=== PATIENT | female | born 1945 | race Caucasian/White ===

== ENCOUNTER 2018-09-05 13:17 | Emergency (ER) | payer MEDICARE, MEDICAID ==
--- NOTE | 2018-09-05 15:33 | ULT ---
VENOUS DOPPLER ULTRASOUND OF THE LEFT LOWER EXTREMITY: Date: 09/05/18 HISTORY: 73-year-old female with right lower extremity pain and edema. TECHNIQUE: Otero scale ultrasound with color flow and spectral Doppler imaging of the deep venous systems of the left lower extremity performed. FINDINGS: There is good flow, compression, and augmentation noted in the left common femoral, femoral, deep fem oral, popliteal, posterior tibial, and greater saphenous veins. IMPRESSION: No evidence of deep venous thrombosis in the left lower extremity. POS: C
--- NOTE | 2018-09-05 16:04 | ULT ---
VENOUS DOPPLER ULTRASOUND OF RIGHT LOWER EXTREMITY: Date; 09/05/18 HISTORY: Right lower extremity edema. TECHNIQUE: Otero scale ultrasound with color flow and spectral Doppler imaging of the deep venous system of the r ight lower extremity was performed. FINDINGS: There is good flow, compression, and augmentation noted in the right common femoral, femoral, deep fe moral, popliteal, posterior tibial, and greater saphenous veins. IMPRESSION: No evidence of deep venous thrombosis in the right lower extremity. POS: C
== END 2018-09-05 17:12 | disposition home or self-care (01) ==
LOC: ERS 13:17
DX: R60.0 Localized edema (principal); E03.9 Hypothyroidism, unspecified; J45.909 Unspecified asthma, uncomplicated; E78.5 Hyperlipidemia, unspecified; F41.9 Anxiety disorder, unspecified; F32.9 Major depressive disorder, single episode, unspecified

== ENCOUNTER 2021-12-29 17:07 | Inpatient (IN) | payer MEDICARE, MEDICAID ==
[2021-12-29 17:49] LABS: #Basophils 0.1 thou/uL (0.0-0.2); #Monocytes 0.7 thou/uL (0.11-0.59); #Neutrophils 6.2 thou/uL (1.40-6.50); %Eosinophils 0.2 % (0.0-10.0); %Monocytes 8.6 % (0.0-10.0); %Neutrophils 77.3 % (42.0-75.0); Hemoglobin 11.1 g/dL (12.0-16.0); Mean Corpuscular HGB CONC 31.3 g/dL (32.0-36.0); Mean Corpuscular Hemoglobin 32.1 pg (27.0-31.0); Mean Platelet Volume 8.3 fL (7.4-10.4); Platelet Count 184 thou/uL (130-400); RBC Distribution Width 12.5 % (11.5-14.5); Red Blood Cell (RBC) Count 3.46 mill/uL (4.20-5.40)
[2021-12-29 18:00] LABS: INR-International Normal Ratio 0.9; Prothrombin Time 12.4 sec (12.0-14.7)
[2021-12-29 18:01] LABS: PTT 30.7 sec (22.9-36.1)
[2021-12-29 18:07] LABS: ALT (SGPT) 17 U/L (8-55); AST (SGOT) 37 U/L (5-34); Albumin 4.1 g/dL (3.4-4.8); Alkaline Phosphatase 89 U/L (40-110); Anion Gap 16 mmol/L (10-20); BUN (Urea Nitrogen) 25 mg/dL (9.8-20.1); Bilirubin, Total 0.7 mg/dL (0.2-1.2); CK (CPK) 294 U/L (29-168); Calc. Creatinine Clearance 0 mL/min (70-130); Calcium 9.7 mg/dL (7.8-10.44); Carbon Dioxide 26 mmol/L (23-31); Chloride 105 mmol/L (98-107); Estimated GFR 57; Globulin 3.2 g/dL (2.4-3.5); Glucose 119 mg/dL (83-110); Lipase 22 U/L (8-78); Potassium 3.6 mmol/L (3.5-5.1); Protein, Total 7.3 g/dL (5.8-8.1); Sodium 143 mmol/L (136-145)
[2021-12-29] MEDS ORDERED: niCARdipine 25 MG in Sodium Chloride 0.9% 250 ML 250 ML IVPB SCH ×2 (18:30→20:18)
[2021-12-29 18:34] LABS: Bilirubin Negative (Negative); Blood, Urine Negative (Negative); Clarity Clear (Clear); Glucose, Urine (Dipstick) Normal (Negative); Ketone, Urine Negative (Negative); Leukocyte 500 Leu/uL (Negative); Nitrite 1+ (Negative); Protein, Urine (Dipstick) 10 mg/dL (Neg-Trace); Urobilinogen Normal mg/dL (Less than 2)
[2021-12-29 18:37] LABS: Bacteria/HPF 3+ HPF (None Seen); Squamous Epithelial 0-3 HPF (0-3)
[2021-12-29] MEDS ORDERED: Ondansetron PF 4 MG/2 ML Vial ONE (18:41)
[2021-12-29] MEDS ORDERED: niCARdipine 25 MG/10 ML VIAL ONE (18:41)
[2021-12-29] MEDS ORDERED: cefTRIAXone\\ROCEPHIN 1 GM VIAL ONE (19:06)
[2021-12-29] MEDS ORDERED: Ondansetron PF 4 MG/2 ML Vial IVP PRN (20:10)
[2021-12-29] MEDS ORDERED: Insulin Regular 300 UNITS/3 ML VIAL SC PRN (20:10)
[2021-12-29] MEDS ORDERED: Mannitol 12.5 GM/50 ML IV PRN ×2 (20:10→20:32)
[2021-12-29] MEDS ORDERED: Dextrose 5% in Water 1,000 ML IV PRN (20:10)
[2021-12-29] MEDS ORDERED: Dextrose 50% Abboject 50 ML SYRINGE SLOW IVP PRN (20:10)
[2021-12-29] MEDS ORDERED: DOPamine 400 MG/D5W 250 ML 250 ML IVPB PRN (20:10)
[2021-12-29] MEDS ORDERED: Morphine 2 MG/ML VIAL SLOW IVP PRN (20:17)
[2021-12-29 21:30] LABS: Anion Gap 14 mmol/L (10-20); BUN (Urea Nitrogen) 23 mg/dL (9.8-20.1); Calc. Creatinine Clearance 0 mL/min (70-130); Calcium 8.7 mg/dL (7.8-10.44); Carbon Dioxide 24 mmol/L (23-31); Chloride 107 mmol/L (98-107); Estimated GFR 63; Glucose 106 mg/dL (83-110); Potassium 3.3 mmol/L (3.5-5.1); Sodium 142 mmol/L (136-145)
[2021-12-29] MEDS: Dextrose 5 % And 0.9 % NaCl 1,000 ML IV SCH (21:52)
[2021-12-29] MEDS: Famotidine/PF 20 mg/2ml Vial SLOW IVP SCH (22:09)
[2021-12-29 22:36] VITALS: BMI 24.8
[2021-12-30 00:19] LABS: SARS-CoV-2 NAA Rapid Test Not Detected (NotDetected)
[2021-12-30] MEDS ORDERED: Potassium Chloride 20 MEQ in Premix Bag 1 BAG IVPB SCH (00:45)
[2021-12-30 04:22] LABS: #Basophils 0.1 thou/uL (0.0-0.2); #Eosinphils 0.1 thou/uL (0.0-0.7); #Lymphocytes 1.3 thou/uL (1.20-3.40); #Monocytes 0.8 thou/uL (0.11-0.59); #Neutrophils 4.6 thou/uL (1.40-6.50); %Basophils 1.1 % (0.0-1.0); %Eosinophils 1.3 % (0.0-10.0); %Lymphocytes 19.3 % (21.0-51.0); %Monocytes 11.1 % (0.0-10.0); %Neutrophils 67.2 % (42.0-75.0); Hemoglobin 11.5 g/dL (12.0-16.0); Mean Corpuscular HGB CONC 31.3 g/dL (32.0-36.0); Mean Corpuscular Hemoglobin 32.7 pg (27.0-31.0); Mean Platelet Volume 8.4 fL (7.4-10.4); Platelet Count 169 thou/uL (130-400); RBC Distribution Width 12.5 % (11.5-14.5); White Blood Cell (WBC) Count 6.9 thou/uL (4.8-10.8)
[2021-12-30 04:33] LABS: Anion Gap 16 mmol/L (10-20); BUN (Urea Nitrogen) 19 mg/dL (9.8-20.1); Calc. Creatinine Clearance 46 mL/min (70-130); Calcium 9.3 mg/dL (7.8-10.44); Carbon Dioxide 25 mmol/L (23-31); Cardiac Risk 3.2 (Less than 4.5); Chloride 106 mmol/L (98-107); Cholesterol 197 mg/dl (< 200 Desired); Estimated GFR 68; Glucose 94 mg/dL (83-110); HDL Cholesterol 62 mg/dL (>60 Neg Risk); LDL Cholesterol, Calculated 119 mg/dL; Potassium 3.6 mmol/L (3.5-5.1); Sodium 143 mmol/L (136-145); Triglycerides 78 mg/dL (Less than 150)
[2021-12-30] MEDS: cefTRIAXone\\ROCEPHIN 1 GM in Sodium Chloride 0.9% 100 ML IVPB SCH (08:21)
[2021-12-30] MEDS: Famotidine/PF 20 mg/2ml Vial SLOW IVP SCH (08:21)
[2021-12-30] MEDS ORDERED: Sodium Chloride 0.9% (PF) 10 ML VIAL FS PRN (13:00)
[2021-12-30] MEDS: Labetalol HCl 100 MG/20 ML VIAL SLOW IVP PRN (14:32)
[2021-12-30] MEDS ORDERED: Amlodipine 10 MG TAB PO SCH (14:45)
[2021-12-30] MEDS ORDERED: Artificial Tear Sol 15 ML BOT EA EYE PRN (15:10)
[2021-12-30] MEDS ORDERED: Melatonin 3 MG TAB PO PRN (15:13)
[2021-12-30] MEDS ORDERED: Teriflunomide [Aubagio] 14 MG Tablet PO SCH (15:30)
[2021-12-30] MEDS: Dextrose 5 % And 0.9 % NaCl 1,000 ML IV SCH ×2 (15:35→20:13)
[2021-12-30] MEDS: Mometasone 100 MCG/PUFF (1 INHALER) INH SCH (18:54)
[2021-12-30] MEDS: Ketotifen Fumarate 0.025% Ophth Soln 5 ml Bottle EA EYE SCH (20:52)
[2021-12-30] MEDS: Montelukast Sodium 10 mg Tablet PO SCH (20:53)
[2021-12-31] MEDS: Levothyroxine Sodium 50 MCG TAB PO SCH (06:02)
[2021-12-31] MEDS ORDERED: Pantoprazole 40 MG VIAL IVP SCH (09:00)
[2021-12-31] MEDS: Amlodipine 5 MG TAB PO SCH (10:10)
[2021-12-31] MEDS: Ezetimibe 10 MG TAB PO SCH (10:11)
[2021-12-31] MEDS: Escitalopram Oxalate 20 mg Tablet PO SCH (10:11)
[2021-12-31] MEDS: cefTRIAXone\\ROCEPHIN 1 GM in Sodium Chloride 0.9% 100 ML IVPB SCH (10:11)
[2021-12-31] MEDS: Ketotifen Fumarate 0.025% Ophth Soln 5 ml Bottle EA EYE SCH ×2 (10:12→21:10)
[2021-12-31] MEDS: Teriflunomide [Aubagio] 14 MG Tablet PO SCH (10:12)
[2021-12-31] MEDS: Loratadine 10 MG TAB PO SCH (10:12)
[2021-12-31] MEDS: Mometasone 100 MCG/PUFF (1 INHALER) INH SCH ×3 (10:20→18:43)
[2021-12-31] MEDS ORDERED: Polyethylene Glycol 3350 17 GM Packet PO SCH (11:00)
[2021-12-31] MEDS: Labetalol HCl 100 MG/20 ML VIAL SLOW IVP PRN (11:24)
[2021-12-31] MEDS: Dextrose 5 % And 0.9 % NaCl 1,000 ML IV SCH (17:30)
[2021-12-31] MEDS: Montelukast Sodium 10 mg Tablet PO SCH (21:10)
[2022-01-01 04:44] LABS: #Basophils 0.1 thou/uL (0.0-0.2); #Eosinphils 0.2 thou/uL (0.0-0.7); #Lymphocytes 1.4 thou/uL (1.20-3.40); #Monocytes 0.8 thou/uL (0.11-0.59); %Basophils 1.2 % (0.0-1.0); %Eosinophils 2.9 % (0.0-10.0); %Neutrophils 61.9 % (42.0-75.0); Hemoglobin 11.5 g/dL (12.0-16.0); Mean Corpuscular HGB CONC 31.9 g/dL (32.0-36.0); Mean Corpuscular Hemoglobin 32.1 pg (27.0-31.0); Mean Platelet Volume 8.5 fL (7.4-10.4); Platelet Count 169 thou/uL (130-400); RBC Distribution Width 12.2 % (11.5-14.5); Red Blood Cell (RBC) Count 3.58 mill/uL (4.20-5.40); White Blood Cell (WBC) Count 6.4 thou/uL (4.8-10.8)
[2022-01-01 05:19] LABS: ALT (SGPT) 22 U/L (8-55); AST (SGOT) 41 U/L (5-34); Albumin 3.6 g/dL (3.4-4.8); Alkaline Phosphatase 79 U/L (40-110); Anion Gap 14 mmol/L (10-20); BUN (Urea Nitrogen) 17 mg/dL (9.8-20.1); Bilirubin, Total 0.4 mg/dL (0.2-1.2); Calc. Creatinine Clearance 51 mL/min (70-130); Calcium 9.1 mg/dL (7.8-10.44); Carbon Dioxide 25 mmol/L (23-31); Chloride 105 mmol/L (98-107); Estimated GFR 77; Globulin 3.1 g/dL (2.4-3.5); Glucose 102 mg/dL (83-110); Potassium 3.5 mmol/L (3.5-5.1); Protein, Total 6.7 g/dL (5.8-8.1); Sodium 140 mmol/L (136-145)
[2022-01-01] MEDS: Levothyroxine Sodium 50 MCG TAB PO SCH (06:09)
[2022-01-01] MEDS: Mometasone 100 MCG/PUFF (1 INHALER) INH SCH (07:28)
[2022-01-01] MEDS ORDERED: Polyethylene Glycol 3350 17 GM Packet PO SCH (09:00)
[2022-01-01] MEDS: Ezetimibe 10 MG TAB PO SCH (09:48)
[2022-01-01] MEDS: Escitalopram Oxalate 20 mg Tablet PO SCH (09:48)
[2022-01-01] MEDS: Teriflunomide [Aubagio] 14 MG Tablet PO SCH (09:49)
[2022-01-01] MEDS: Loratadine 10 MG TAB PO SCH (09:49)
[2022-01-01] MEDS: Amlodipine 5 MG TAB PO SCH (09:49)
[2022-01-01] MEDS: cefTRIAXone\\ROCEPHIN 1 GM in Sodium Chloride 0.9% 100 ML IVPB SCH (09:50)
[2022-01-01] MEDS: Ketotifen Fumarate 0.025% Ophth Soln 5 ml Bottle EA EYE SCH (09:50)
[2022-01-01 15:51] VITALS: BP 111/60; TEMP 98
[2022-01-01] MEDS: Dextrose 5 % And 0.9 % NaCl 1,000 ML IV SCH (16:58)
== END 2022-01-01 16:40 | DRG 64 ==
LOC: ERS 17:07 → CCU 18:21 → NEURO 12-31 14:53
PROVIDERS: ADMIT Internal Medicine; ATTEND Internal Medicine
DX: I61.5 Nontraumatic intracerebral hemorrhage, intraventricular (principal); G93.41 Metabolic encephalopathy; N39.0 Urinary tract infection, site not specified; J96.11 Chronic respiratory failure with hypoxia; Z66 Do not resuscitate; Z20.822 Contact with and (suspected) exposure to COVID-19; G35 Multiple sclerosis; E03.9 Hypothyroidism, unspecified; M41.9 Scoliosis, unspecified; M19.90 Unspecified osteoarthritis, unspecified site; E78.5 Hyperlipidemia, unspecified; F41.9 Anxiety disorder, unspecified; F32.A Depression, unspecified; I10 Essential (primary) hypertension; Z90.710 Acquired absence of both cervix and uterus; Z88.5 Allergy status to narcotic agent; Z79.82 Long term (current) use of aspirin; Z79.890 Hormone replacement therapy; Z79.899 Other long term (current) drug therapy; Z79.52 Long term (current) use of systemic steroids; Z99.3 Dependence on wheelchair
CPT/HCPCS: 36415; 36416; 70450; 71045; 80048; 80053; 80061; 81003; 81015; 82550; 83690; 83880; 83930; 84443; 85025; 87086; 93005; 96361; 96374; 96375; J0696; J2405; J3480; J3490; J7042; S0028; U0002; U0003; U0005